=== PATIENT | female | born 1945 | race Caucasian/White ===

== ENCOUNTER 2018-06-07 13:47 | Inpatient (IN) ==
[2018-06-07] MEDS ORDERED: D5% in Water 1,000 ML IVC PRN (17:08)
[2018-06-07] MEDS ORDERED: *HR* Dextrose 50 % in Water (Syg) 50 ML SYRINGE IVP PRN (17:08)
[2018-06-07] MEDS ORDERED: Dextrose Gel 15 GM/37.5 ML TUBE PO PRN ×2 (17:08)
--- NOTE | 2018-06-07 17:25 | Internal Med History&Physical ---
Date of Encounter: 06/07/18 Time of Encounter: 17:00 Internal Medicine - H&P: HPI Chief complaint: Left knee pain Admitted From: Home Plans for Post Hospital Care: Transfer Intermediate Facility History of present illness: Patient is an 89-year-old female with past medical history significant for pacemaker, atrial fibrillation on Coumadin for anticoagulation, hypothyroid, hypertension and hyperlipidemia who presents to the [facility] ER on 06/07/18 due to left knee pain. Patient reports that after waking up this morning and going to the shower, she sat down and then when she stood up, she could not feel her legs bilaterally and fell hitting her left knee. Patient reported of immediate sharp left knee pain which she describes as sharp radiating down to her left ankle. Patient was not able to stand up so she pushed her life alert button and EMS was dispatched and brought patient into [facility] ER for further evaluation. At [facility], patient was found to have a left distal femoral meetaphysis fracture involving the interface with the femoral components of the prosthesis of left total knee arthroplasty. Orthopedics (Dr. Gutierrez) was consulted from [facility] and patient was transferred to [facility] for further medical management. Past Med Surg Social Fam HX - Past Medical History Medical history: atrial fibrillation, diabetes, hyperlipidemia, hypertension, thyroid disease - Past Surgical History Surgical History: pacemaker/AICD - Social History Smoking Status: Never smoker Alcohol use: none Current living situation: Home - Independent - Family History Father Hx Family Cardiac Disorders: Yes (NM) Internal Medicine - H&P: Meds ARIPiprazole [Abilify] 5 mg PO DAILY 06/07/18 [History] Buspirone HCl [Buspar] 30 mg PO BID 06/07/18 [History] Dorzolamide [Trusopt] 1 drop BOTH EYES BID 06/07/18 [History] Famotidine [Heartburn Prevention] 20 mg PO BID 06/07/18 [History] Glimepiride [Amaryl] 2 mg PO DAILY 06/07/18 [History] Levothyroxine [Synthroid] 175 mcg PO DAILY 06/07/18 [History] Montelukast [Singulair] 10 mg PO DAILY 06/07/18 [History] Omeprazole [PriLOSEC] 40 mg PO DAILY 06/07/18 [History] Pravastatin Sodium [Pravachol] 20 mg PO DAILY 06/07/18 [History] 3 Allergy/AdvReac Type Severity Reaction Status Date / Time ciprofloxacin Allergy Palpitation Verified 06/07/18 17:00 s codeine Allergy Difficulty Verified 06/07/18 17:00 Swallowing levofloxacin [From Levaquin] Allergy Hives Verified 06/07/18 17:00 Sulfa (Sulfonamide Allergy Weakness Verified 06/07/18 17:00 Antibiotics) nitrofurantoin AdvReac Nausea Verified 06/07/18 17:00 [From Macrobid] All Systems PM: A 10-system review of systems was performed and is negative for pertinent findings except as documented above in the HPI. - Constitutional Vitals: Temp Pulse Resp BP Pulse Ox 98.2 F 81 16 114/65 94 06/07/18 16:16 06/07/18 16:16 06/07/18 16:16 06/07/18 16:16 06/07/18 16:16 General appearance: Present: A&O X 3, no acute distress - Eye Eye exam: Present: normal appearance - ENT ENT exam: Present: mucous membranes moist - Respiratory Respiratory exam: Present: CTAB. Absent: accessory muscle use, rales, rhonchi, wheezes - Cardiovascular Cardiovascular exam: Present: RRR, +S1, +S2. Absent: diastolic murmur, gallop, rubs, systolic murmur - GI/Abdominal GI/Abdominal exam: Present: normal bowel sounds, soft, no peritoneal signs. Absent: distended, tenderness - Extremities Exam Extremities exam: Absent: pedal edema - Neurological Exam Neurological exam: Present: oriented X3 - Psychiatric Psychiatric exam: Present: normal mood - Skin Skin exam: Present: normal color - Assessment and plan (1) Left femoral shaft fracture Current Visit: Yes Status: Acute Assessment and plan: Orthopedics notified with scheduled distal femur replacement on 06/08/18 Patient with history of pacemaker placement and atrial fibrillation in addition to strong family history of cardiac disease. Consult cardiology for clearance. Qualifiers: Qualified Code(s): S72.302A - Unspecified fracture of shaft of left femur, initial encounter for closed fracture (2) Atrial fibrillation Current Visit: Yes Status: Acute Assessment and plan: Patient reports a history of atrial fibrillation and as a result pacemaker placement Patient currently on Coumadin for anticoagulation. Qualifiers: Atrial fibrillation type: unspecified Qualified Code(s): I48.91 - Unspecified atrial fibrillation (3) HTN (hypertension) Current Visit: Yes Status: Acute Assessment and plan: Continue home medications Qualifiers: Hypertension type: essential hypertension Qualified Code(s): I10 - Essential (primary) hypertension (4) HLD (hyperlipidemia) Current Visit: Yes Status: Acute Assessment and plan: Continue home medications Qualifiers: Hyperlipidemia type: unspecified Qualified Code(s): E78.5 - Hyperlipidemia , unspecified (5) Hypothyroid Current Visit: Yes Status: Acute Assessment and plan: Continue home medications Qualifiers: Hypothyroidism type: unspecified Qualified Code(s): E03.9 - Hypothyroidism , unspecified (6) Diabetes Current Visit: Yes Status: Acute Assessment and plan: Coverage with sliding-scale insulin Qualifiers: Chronic kidney disease stage: unspecified stage Qualified Code(s): E08.22 - Diabetes mellitus due to underlying condition with diabetic chronic kidney disease; Z79.4 - skilled nursing (current) use of insulin (7) DVT prophylaxis Current Visit: Yes Status: Acute Assessment and plan: Will hold patient's Coumadin due to potential surgery on 06/08/18 - Time Spent With Patient Total time spent is greater than 50% in coordination of care (as documented) at patient's floor/unit and/or counseling patient:
--- NOTE | 2018-06-07 17:38 | Orthopedic Consult Note ---
Date of Encounter: 06/11/18 Time of Encounter: 17:36 Assessment and Plan (1) Left femoral shaft fracture Status: Acute Qualifiers: Encounter type: initial encounter Qualified Code(s): S72.302A - Unspecified fracture of shaft of left femur, initial encounter for closed fracture History of Present Illness Chief complaint: Left Distal Femur Replacement HPI: Ms. Leach is a 72 year old female At [facility], patient was found to have a left distal femoral metaphysis fracture involving the interface with the femoral components of the prosthesis of left total knee arthroplasty. Surgery tomorrow 06/08 with Patient consent was discussed and reviewed - patient signed. All questions and concerns were addressed. Medical clearance needed. Past Med Surg Social Fam HX - Past Medical History Medical history: atrial fibrillation, diabetes, hyperlipidemia, hypertension, thyroid disease - Past Surgical History Surgical History: pacemaker/AICD - Social History Smoking Status: Never smoker Alcohol use: none - Family History Father Hx Family Cardiac Disorders: Yes (ID) Medications and Allergies ARIPiprazole [Abilify] 5 mg PO DAILY 06/07/18 [History] Buspirone HCl [Buspar] 30 mg PO BID 06/07/18 [History] Dorzolamide [Trusopt] 1 drop BOTH EYES BID 06/07/18 [History] Famotidine [Heartburn Prevention] 20 mg PO BID 06/07/18 [History] Glimepiride [Amaryl] 2 mg PO DAILY 06/07/18 [History] Levothyroxine [Synthroid] 175 mcg PO DAILY 06/07/18 [History] Montelukast [Singulair] 10 mg PO DAILY 06/07/18 [History] Omeprazole [PriLOSEC] 40 mg PO DAILY 06/07/18 [History] Pravastatin Sodium [Pravachol] 20 mg PO DAILY 06/07/18 [History] Warfarin [Coumadin] 2 mg PO SUSA 06/08/18 [History] Warfarin [Coumadin] 4 mg PO MOTUWETHFR 06/08/18 [History] 3 Allergy/AdvReac Type Severity Reaction Status Date / Time ciprofloxacin Allergy Palpitation Verified 06/07/18 17:00 s codeine Allergy Difficulty Verified 06/07/18 17:00 Swallowing levofloxacin [From Levaquin] Allergy Hives Verified 06/07/18 17:00 Sulfa (Sulfonamide Allergy Weakness Verified 06/07/18 17:00 Antibiotics) nitrofurantoin AdvReac Nausea Verified 06/07/18 17:00 [From Macrobid] All Systems Reviewed: The remainder of the systems were reviewed and are negative - Constitutional Constitutional: as per HPI - Cardiovascular Cardiovascular: as per HPI - Respiratory Respiratory: as per HPI - Musculoskeletal Musculoskeletal: abnormal gait, joint swelling, limited range of motion, radiating pain into limb, no numbness Physical Exam - Constitutional Vitals: Temp Pulse Resp BP Pulse Ox 98.2 F 81 16 114/65 94 06/07/18 16:16 06/07/18 16:16 06/07/18 16:16 06/07/18 16:16 06/07/18 16:16 General appearance IM: A&O X 3, morbidly obese, answers questions appropriately Results - Labs Result Diagrams: 06/10/18 04:35 06/10/18 04:35 Labs: All other labs normal. - Diagnostic results Knee x-ray: report reviewed, image reviewed Consult Discharge Plan - Plan Referrals: Ernesto Kearney DO [Primary Care Provider] -
[2018-06-07] MEDS ORDERED: Naloxone 0.4 MG/ML INJ IVP PRN (17:48)
[2018-06-07] MEDS: Ketorolac 30 MG/ML VIAL IVP PRN ×2 (18:48→23:43)
[2018-06-07] MEDS: Insulin LISPRO 300 UNITS/3 ML VIAL SQ SCH ×2 (18:50→20:55)
[2018-06-07 18:56] LABS: Basophils % 0.5 %; Eosinophils % 0.2 %; Hematocrit 38.7 % (35.3-44.9); Hemoglobin 12.1 g/dL (11.5-15.4); Immature Granulocytes % 0.6 % (0-4); Lymphocytes # 1.2 K/mcL (0.6-4.6); Lymphocytes % 14.2 %; Mean Corpuscular HGB Conc 31.3 g/dL (31.6-35.5); Mean Corpuscular Hemoglobin 27.3 pg (28.0-33.3); Mean Corpuscular Volume 87.2 fL (83.0-100.0); Mean Platelet Volume 11.1 fL (9.4-12.4); Monocytes # 0.6 K/mcL (0.0-1.3); Monocytes % 7.1 %; Neutrophils # 6.8 K/mcL (1.6-8.9); Platelet Count 224 K/mcL (140-400); Red Blood Count 4.44 M/mcL (3.82-4.97); Red Cell Distribution Width 16.5 % (11.5-14.5); Segmented Neutrophils % 77.4 %
[2018-06-07 19:04] LABS: INR 3.3; Prothrombin Time 37.4 Seconds (9.4-12.1)
[2018-06-07 19:15] LABS: BUN/Creatinine Ratio 19 (6-26); Blood Urea Nitrogen 10 mg/dL (8-23); Calcium 8.6 mg/dL (8.6-10.3); Carbon Dioxide 30 mEq/L (23-29); Chloride 102 mEq/L (98-107); Glucose 112 mg/dL (70-105); Osmolality,Calculated 286 (280-300); Sodium 138 mEq/L (136-145); eGFR For Non-African Americans > 60 (> 60)
--- NOTE | 2018-06-07 19:18 | Anesthesia Evaluation PreOp ---
Date of Encounter: 06/07/18 Time of Encounter: 19:12 - Past History Planned Operation: Right Distal femoral Replacement Cardiac History: HTN, Hyperlipidemia, Arrhythmia (Afib), Pacemaker/ICD ( Pacemaker) Pulmonary History: Denies Any Significant HX HVAC SPECIALIST History: Denies Any Significant HX Other Medical History: Diabetes Type II, Thyroid (Hypo), Other ([facility] [place] BMI-59.6) Anesthesia History: Past Anesthesia (RIGO, Chema. TKR, bladder sx), Problems ( needed CPAP post prior surgery) : No Alcohol Use: none Drug use: none Medications and Allergies ARIPiprazole [Abilify] 5 mg PO DAILY 06/07/18 [History] Buspirone HCl [Buspar] 30 mg PO BID 06/07/18 [History] Dorzolamide [Trusopt] 1 drop BOTH EYES BID 06/07/18 [History] Famotidine [Heartburn Prevention] 20 mg PO BID 06/07/18 [History] Glimepiride [Amaryl] 2 mg PO DAILY 06/07/18 [History] Levothyroxine [Synthroid] 175 mcg PO DAILY 06/07/18 [History] Montelukast [Singulair] 10 mg PO DAILY 06/07/18 [History] Omeprazole [PriLOSEC] 40 mg PO DAILY 06/07/18 [History] Pravastatin Sodium [Pravachol] 20 mg PO DAILY 06/07/18 [History] 3 Allergy/AdvReac Type Severity Reaction Status Date / Time ciprofloxacin Allergy Palpitation Verified 06/07/18 17:00 s codeine Allergy Difficulty Verified 06/07/18 17:00 Swallowing levofloxacin [From Levaquin] Allergy Hives Verified 06/07/18 17:00 Sulfa (Sulfonamide Allergy Weakness Verified 06/07/18 17:00 Antibiotics) nitrofurantoin AdvReac Nausea Verified 06/07/18 17:00 [From Macrobid] - Meds/Allergy Pre-op Review Medications Reviewed: Yes Allergies Reviewed: Yes Beta Blockers on Current Med List: No Anesthesia Results - Labs 06/07/18 18:16 06/07/18 18:16 Anesthesia Exam Vital Signs/O2 Sat, Most Current Temp Pulse Resp BP Pulse Ox 98.2 F 81 16 114/65 94 06/07/18 16:16 06/07/18 16:16 06/07/18 16:16 06/07/18 16:16 06/07/18 16:16 NPO (# of Hours): > 8 hrs Pain Scale: 0 Pain Scale Used: Numeric (1 - 10) - HEENT Pupil (Motor): Pupils equal, EOMI Mallampati: III Teeth: Normal Oral Opening: Greater than 3 - HVAC SPECIALIST LOC: Oriented HVAC SPECIALIST Motor: Normal RUE, Normal LUE, Normal RLE, Normal LLE, Normal Face HVAC SPECIALIST Sensory: Normal: RUE, LUE, RLE, LLE, Face - Cardiac Rhythm: Regular Murmur: None JVD: No Carotid Bruit: No - Pulmonary Breath Sounds: bilateral Clear Respiratory Effort: Symmetrical Anesthesia Assess/Plan ASA Score: 4 Modified [place] Scale for Level of Consciousness: Cooperative, oriented, and tranquil Anesthetic Plan: General, Regional Autologous Blood: Yes Monitoring Plan: Standard Monitors Recovery Plan: PACU
[2018-06-07] MEDS: Dorzolamide OPTH 10 ML BOTTLE BOTH EYES SCH (20:54)
[2018-06-07] MEDS: Famotidine 20 MG TABLET PO SCH (20:55)
[2018-06-08 02:05] LABS: INR 3.4; Prothrombin Time 38.6 Seconds (9.4-12.1)
[2018-06-08 02:12] LABS: BUN/Creatinine Ratio 22 (6-26); Blood Urea Nitrogen 13 mg/dL (8-23); Calcium 8.2 mg/dL (8.6-10.3); Carbon Dioxide 29 mEq/L (23-29); Chloride 101 mEq/L (98-107); Glucose 106 mg/dL (70-105); Osmolality,Calculated 281 (280-300); Potassium 3.9 mEq/L (3.5-5.1); Sodium 135 mEq/L (136-145); eGFR For Non-African Americans > 60 (> 60)
--- NOTE | 2018-06-08 06:50 | Orthopedics Progress Note ---
Date of Encounter: 06/08/18 Time of Encounter: 06:49 Subjective Interval history: Patient seen this morning as well as yesterday displaced distal periprosthetic femur fracture left x-ray indicates not enough bone for fixation, nonoperative management equals non-ambulation, recommendation is revision to a hinge total knee distal femoral replacement. We reviewed the risks and benefits as well as recovery. All questions were answered. The patient agreed to this treatment plan and appeared to understand the plan is reviewed. Patient's INR is 3.4 we will order FFP surgery scheduled for today. Objective Vital signs: Vital Signs Temp Pulse Resp BP Pulse Ox 06/08/18 06:37 98.3 F 76 20 129/77 96 06/08/18 05:40 98.4 F 80 18 124/72 95 06/07/18 23:28 98.2 F 80 18 135/78 92 06/07/18 20:40 98.2 F 83 16 122/69 93 06/07/18 16:16 98.2 F 81 16 114/65 94 Intake and Output 06/07/18 06/07/18 06/08/18 15:59 23:59 07:59 Output Total 400 / 400 Balance -400 / -400 Output: Catheter 400 / 400 Other: Weight 147 kg Blood Glucose* 151 - Labs CBC & BMP: 06/07/18 18:16 06/08/18 01:16 Labs: Abnormal lab results MCH 27.3 pg (28.0-33.3) L 06/07/18 18:16 MCHC 31.3 g/dL (31.6-35.5) L 06/07/18 18:16 RDW 16.5 % (11.5-14.5) H 06/07/18 18:16 PT 38.6 Seconds (9.4-12.1) H 06/08/18 01:16 Sodium 135 mEq/L (136-145) L 06/08/18 01:16 Glucose 106 mg/dL (70-105) H 06/08/18 01:16 POC Glucose 151 mg/dL (70-99) H 06/07/18 20:46 Calcium 8.2 mg/dL (8.6-10.3) L 06/08/18 01:16 - VTE Documentation of Mechanical Device: Venous foot pump, device Consult Discharge Plan - Plan Referrals: Ernesto Kearney DO [Primary Care Provider] -
[2018-06-08] MEDS ORDERED: 0.9 % Sodium Chloride 250 ML IVC SCH (07:30)
[2018-06-08] MEDS: Insulin LISPRO 300 UNITS/3 ML VIAL SQ SCH (07:38)
--- NOTE | 2018-06-08 08:46 | Cardiology Consult Note ---
<Logan Hines - Last Filed: 06/08/18 10:10> Date of Encounter: 06/08/18 Time of Encounter: 08:45 Assessment and Plan (1) Left femoral shaft fracture Current Visit: Yes Status: Acute Per Cardiology: Management per orthopedics with apparent surgery planned today. Qualifiers: Encounter type: initial encounter Qualified Code(s): S72.302A - Unspecified fracture of shaft of left femur, initial encounter for closed fracture (2) Preop cardiovascular exam Current Visit: Yes Status: Acute Per Cardiology: No known history of CAD. Will attempt to obtain recent stress test and echo results from outside facility within the past one year. Chest pain-free. Of note, has pacemaker as well with apparent recent pacer check in the past few weeks as well by her primary oriental medicine practitioner -- has [employer] device. On statin. Pending surgery today. Anticipate patient can be considered low- intermediate risk for planned procedure from a cardiac standpoint. We will await medical records and review discussed with Dr. Rowland. (3) Atrial fibrillation Current Visit: Yes Status: Chronic Per Cardiology: History of paroxysmal atrial fibrillation. Has pacemaker. Follows with outside rheology in [facility]. On Coumadin, currently on hold for pending surgical intervention. Recommend resuming when able. Qualifiers: Atrial fibrillation type: paroxysmal Qualified Code(s): I48.0 - Paroxysmal atrial fibrillation Discussion w patient/family: The assessment and plan as outlined above was discussed with the patient who expressed understanding and agreement. All questions were answered. Thank you for involving us in the care of your patient. Please call with any questions. History of Present Illness Consult date: 06/08/18 Requesting physician: Elie Ayala Consult reason: Preop Chief complaint: Leg pain History of present illness: Ms. Leach is a 72 year old female with a relevant past medical history of paroxysmal atrial fibrillation on Coumadin, COPD, hyperlipidemia, hypertension, hypothyroidism, utilizes home oxygen at night, pacemaker. Cardiology consult for preoperative risk stratification. Patient denies any chest pain symptoms. She reports dyspnea on exertion unchanged and at baseline with history of COPD and utilizes home oxygen at night. She reports follows with cardiology at [facility] and underwent stress test , echocardiogram, and [employer] pacer check within the past one year. He denies any history of CAD or previous stenting. She reports yesterday and trouble getting off the toilet and reports has been having ongoing bilateral leg numbness. She reports legs gave out and she buckled and hurt her left leg. She denies any palpitations, dizziness, syncope. Denies any active bleeding or blood loss. Reports follows Coumadin with her primary oriental medicine practitioner. Past Med Surg Social Fam HX - Past Medical History Attestation: Yes The following information was validated with the patient. Source: patient, old records reviewed Medical history: atrial fibrillation, diabetes, hyperlipidemia, hypertension, thyroid disease - Past Surgical History Surgical History: pacemaker/AICD Additional surgical history: two bladder surgeries, Bilateral knee replacements , hysterectomy - Social History Smoking Status: Never smoker Smokeless Tobacco Status: No Alcohol use: none Drug use: none - Family History Father Hx Family Cardiac Disorders: Yes Medications and Allergies ARIPiprazole [Abilify] 5 mg PO DAILY 06/07/18 [History] Buspirone HCl [Buspar] 30 mg PO BID 06/07/18 [History] Dorzolamide [Trusopt] 1 drop BOTH EYES BID 06/07/18 [History] Famotidine [Heartburn Prevention] 20 mg PO BID 06/07/18 [History] Glimepiride [Amaryl] 2 mg PO DAILY 06/07/18 [History] Levothyroxine [Synthroid] 175 mcg PO DAILY 06/07/18 [History] Montelukast [Singulair] 10 mg PO DAILY 06/07/18 [History] Omeprazole [PriLOSEC] 40 mg PO DAILY 06/07/18 [History] Pravastatin Sodium [Pravachol] 20 mg PO DAILY 06/07/18 [History] 3 Allergy/AdvReac Type Severity Reaction Status Date / Time ciprofloxacin Allergy Palpitation Verified 06/07/18 17:00 s codeine Allergy Difficulty Verified 06/07/18 17:00 Swallowing levofloxacin [From Levaquin] Allergy Hives Verified 06/07/18 17:00 Sulfa (Sulfonamide Allergy Weakness Verified 06/07/18 17:00 Antibiotics) nitrofurantoin AdvReac Nausea Verified 06/07/18 17:00 [From Macrobid] All Systems Review: The remainder of the systems were reviewed and are negative - Cardiovascular Cardiovascular: as per HPI, dyspnea on exertion Physical Examination Vital Signs, Last 4 Hours Temp Pulse Resp BP Pulse Ox 06/08/18 06:37 98.3 F 76 20 129/77 96 06/08/18 05:40 98.4 F 80 18 124/72 95 General: Conversant, No Apparent Distress HEENT: Atraumatic, Normocephaly, Mucus Membranes Moist Neck: No JVD, Normal carotid pulses Cardiac: Reg Rate and Rhythm, Normal S1 and S2, No Murmur Lungs: Normal Breath Sounds, No Wheeze, Rales, Rhonchi Neuro: Alert and responsive, No focal deficits noted Abdomen: Soft, Non-Tender, Other (obese) Skin: No rashes noted on visualized skin Musculoskeletal: No Chest Wall Tenderness Extremities: No Clubbing, No Cyanosis, No Edema, Normal Pulses Results 06/07/18 18:16 06/08/18 01:16 Lab Results Laboratory Tests 06/07/18 06/08/18 06/08/18 18:16 01:16 01:16 Hgb 12.1 Hct 38.7 INR 3.4 Creatinine 0.60 Est GFR (Non-Af Amer) > 60 Active Medications Aripiprazole (Abilify) 5 mg PO DAILY [facility] Stop: 12/08/18 09:01 Buspirone HCl (Buspar) 30 mg PO BID [facility] Stop: 12/07/18 21:01 Last Admin: 06/07/18 20:55 Dose: Not Given Dextrose/Water (Dextrose 50% (Syg)) 25 ml IVP AD PRN PRN Reason: Hypoglycemia Stop: 12/07/18 17:09 Dorzolamide HCl (Trusopt) 1 drop BOTH EYES BID [facility] Stop: 12/07/18 21:01 Last Admin: 06/07/18 20:54 Dose: 1 drop Famotidine (Pepcid) 20 mg PO BID [facility] PRN Reason: Protocol Stop: 12/07/18 21:01 Last Admin: 06/07/18 20:55 Dose: 20 mg Glucagon (Glucagen) 1 mg IM ONCE PRN PRN Reason: Hypoglycemia Stop: 12/07/18 17:09 Glucose (Gluctose) 15 gm PO ONCE PRN PRN Reason: Hypoglycemia Stop: 12/07/18 17:09 Glucose (Gluctose) 30 gm PO ONCE PRN PRN Reason: Hypoglycemia Stop: 12/07/18 17:09 Dextrose (Dextrose 5%) 1,000 mls @ 100 mls/hr IVC .Q10H PRN PRN Reason: HYPOGLYCEMIA Stop: 12/07/18 17:09 Sodium Chloride (0.9 % Sodium Chloride) 250 mls @ 25 mls/hr IVC .Q10H [facility] Stop: 12/08/18 07:31 Insulin Human Lispro (Humalog) 0 units SQ TIDAC [facility] PRN Reason: Protocol Stop: 12/07/18 17:16 Last Admin: 06/08/18 07:38 Dose: Not Given Insulin Human Lispro (Humalog) 0 units SQ HS [facility] PRN Reason: Protocol Stop: 12/07/18 21:01 Last Admin: 06/07/18 20:55 Dose: Not Given Ketorolac Tromethamine (Toradol) 30 mg IVP Q4H PRN PRN Reason: Mild Pain Stop: 06/12/18 17:11 Last Admin: 06/07/18 23:43 Dose: 30 mg Levothyroxine Sodium (Synthroid) 175 mcg PO 0630 [facility] Stop: 12/08/18 06:31 Last Admin: 06/08/18 06:01 Dose: Not Given Montelukast Sodium (Singulair) 10 mg PO DAILY [facility] Stop: 12/08/18 09:01 Naloxone HCl (Narcan) 0.4 mg IVP Q2MIN PRN PRN Reason: SEE COMMENTS Stop: 12/07/18 17:49 Omeprazole (Prilosec) 40 mg PO DAILY [facility] Stop: 12/08/18 09:01 Simvastatin (Zocor) 10 mg PO HS [facility] Stop: 12/08/18 21:01 - Imaging and Cardiology Stress Test: other Echo: other - EKG Interpretation EKG results cardiology: other (pending) Consult Discharge Plan - Plan Referrals: Ernesto Kearney DO [Primary Care Provider] - <Espinoza Rowland - Last Filed: 06/08/18 15:02> Date of Encounter: 06/08/18 Time of Encounter: 14:00 - Attending Attestation I have personally performed a face to face evaluation on this patient. I have reviewed and agree with the care plan. History and Exam by me shows: CC: Pain in left leg HPI: Pt reports attempting to get up off the commode, legs were weak, fell with immediate pain in left leg, 9/10, painful with any movement, called squad, found to have left femoral shaft fracture in ER, now scheduled for surgical repair. We are asked to evaluate for cardiovascular risk stratification. Pt reports sees cardiology regularly, follows with [facility] for SSS and PPMK. She reports her heart rate was very slow, with dizziness when standing and attempting to walk, near syncope, underwent cardiac eval including stress imaging and echo, reportedly normal, found to have PAF with slow heart race response, had PPMK at that time. She has been following pacer with [facility]. She reports left leg pain 12/30, has improved but not resolved. ROS: reviewed PMH: reviewed PE: pt seen and examined, agree with findings as documented EKG: Electronic AV sequential pacemaker IMP/Plan: 1. Left femoral fracture, pt is at moderate cardiovascular risk for planned procedure 2. A fib with controlled ventricular response, on systemic anticoagulation with warfarin, on hold in anticipation of surgical intervention, resume post op when stable. 3. Hypothyoid, on replacement 4. Hypertension, controlled on current meds. Assessment and Plan Discussion w patient/family: The assessment and plan as outlined above was discussed with the patient and/or family members who expressed understanding and agreement. All questions were answered. Thank you for involving us in the care of your patient. Please call with any questions. History of Present Illness History of present illness: Ms. Leach is a 72 year old female All Systems Review: The remainder of the systems were reviewed and are negative Physical Examination Vital Signs, Last 4 Hours Temp Pulse BP Pulse Ox 06/08/18 14:09 98.6 F 80 118/76 97 06/08/18 13:53 98.0 F 80 118/73 96 06/08/18 13:42 98.0 F 80 118/73 96 06/08/18 12:06 97.9 F 80 118/75 97 06/08/18 11:50 98.7 F 80 120/65 97 Results 06/07/18 18:16 06/08/18 01:16 Lab Results 06/07/18 06/07/18 06/07/18 18:16 18:16 18:16 WBC 8.8 Hgb 12.1 Hct 38.7 Plt Count 224 INR 3.3 Sodium 138 Potassium 4.0 Chloride 102 Carbon Dioxide 30 H BUN 10 Creatinine 0.53 L Glucose 112 H Calcium 8.6 06/08/18 06/08/18 01:16 01:16 WBC Hgb Hct Plt Count INR 3.4 Sodium 135 L Potassium 3.9 Chloride 101 Carbon Dioxide 29 BUN 13 Creatinine 0.60 Glucose 106 H Calcium 8.2 L
[2018-06-08] MEDS ORDERED: ARIPiprazole 5 MG TABLET PO SCH (09:00)
[2018-06-08] MEDS: Ketorolac 30 MG/ML VIAL IVP PRN (10:09)
[2018-06-08] MEDS: Famotidine 20 MG TABLET PO SCH (10:21)
[2018-06-08] MEDS: Dorzolamide OPTH 10 ML BOTTLE BOTH EYES SCH (11:56)
[2018-06-08 16:20] LABS: INR 2.1; Prothrombin Time 23.3 Seconds (9.4-12.1)
[2018-06-08] MEDS ORDERED: *HR* FentaNYL (PF) 100 MCG/2 ML VIAL ONE ×2 (16:32→19:15)
[2018-06-08] MEDS ORDERED: *HR* Propofol 200 MG/20 ML VIAL IVP ONE (16:33)
[2018-06-08] MEDS ORDERED: *HR* Midazolam HCl 2 MG/2 ML VIAL ONE (16:33)
[2018-06-08] MEDS ORDERED: Dexamethasone 4 MG/ML VIAL ONE (16:34)
[2018-06-08] MEDS ORDERED: Ondansetron 4 MG/2 ML VIAL ONE (16:34)
[2018-06-08] MEDS ORDERED: Lidocaine -MPF 2% 2 ML VIAL ONE (16:34)
[2018-06-08] MEDS ORDERED: Ethanol\\Acetic Acid\\Na Ace\\Ben 1,000 ML IRRIG.SOLN IR ONE (16:38)
[2018-06-08] MEDS ORDERED: CeFAZolin Syr 3,000MG/30 ML 3,000 MG/30 ML SYRINGE IVPB ONE (17:26)
[2018-06-08] MEDS ORDERED: Acetaminophen IV 1,000 MG/100 ML INFUS..BTL ONE (18:04)
[2018-06-08] MEDS ORDERED: *HR* Magnesium Sulfate 1 GM/2 ML VIAL ONE (18:10)
[2018-06-08] MEDS ORDERED: Dexamethasone 4 MG/ML VIAL IVP ONE (18:15)
[2018-06-08] MEDS ORDERED: *HR* Labetalol 100 MG/20 ML MDV IVP PRN (18:15)
[2018-06-08] MEDS ORDERED: Ondansetron 4 MG/2 ML VIAL IVP ONE (18:15)
[2018-06-08] MEDS ORDERED: *HR* HYDROmorphone (PF) 1 MG/ML SYRINGE IVP PRN (18:15)
--- NOTE | 2018-06-08 18:40 | Internal Med Progress Note ---
Hospitalist Progress Note - Encounter Date of Encounter: 06/08/18 Time of Encounter: 11:00 - Subjective Interval History: Patient awaiting surgery this afternoon Cardiology consulted for clearance - Exam Vitals: Temp Pulse Resp BP Pulse Ox 97.7 F 80 17 141/73 95 06/08/18 15:35 06/08/18 17:20 06/08/18 17:20 06/08/18 17:20 06/08/18 17:20 Exam: Gen.: Nonacute distress, alert and oriented 3 ENT: Mucosal membranes moist Respiratory: Lungs are clear to auscultation bilaterally without any wheezing rhonchi or rales Cardiovascular: Normal S1 and S2 regular rate rhythm no murmurs rubs or gallops Abdomen: Soft, nontender and nondistended with positive bowel sounds Extremities: No lower extremity edema Skin: Normal color - Assessment and Plan (1) Left femoral shaft fracture Current Visit: Yes Status: Acute Assessment and Plan: Orthopedics notified with scheduled distal femur replacement this afternoon. Patient with history of pacemaker placement and atrial fibrillation in addition to strong family history of cardiac disease. Cardiology consult for surgical clearance (2) Atrial fibrillation Current Visit: Yes Status: Chronic Assessment and Plan: Patient reports a history of atrial fibrillation and as a result pacemaker placement Patient currently on Coumadin for anticoagulation. (3) HTN (hypertension) Current Visit: Yes Status: Acute Assessment and Plan: Continue home medications (4) HLD (hyperlipidemia) Current Visit: Yes Status: Acute Assessment and Plan: Continue home medications (5) Hypothyroid Current Visit: Yes Status: Acute Assessment and Plan: Continue home medications (6) Diabetes Current Visit: Yes Status: Acute Assessment and Plan: Coverage with sliding-scale insulin (7) DVT prophylaxis Current Visit: Yes Status: Acute Assessment and Plan: Will hold patient's Coumadin due to potential surgery on 06/08/18 - Time Spent with Patient Total time spent is greater than 50% in coordination of care (as documented) at patient's floor/unit and/or counseling patient: Internal Medicine: Result - Labs CBC & Chem 7: 06/07/18 18:16 06/08/18 01:16 Labs: Short CBC 06/07/18 Range/Units 18:16 WBC 8.8 (4.3-11.1) K/mcL Hgb 12.1 (11.5-15.4) g/dL Hct 38.7 (35.3-44.9) % Plt Count 224 (140-400) K/mcL Neutrophils # 6.8 (1.6-8.9) K/mcL BMP 06/07/18 06/08/18 18:16 01:16 Sodium 138 135 L Potassium 4.0 3.9 Chloride 102 101 Carbon Dioxide 30 H 29 BUN 10 13 Creatinine 0.53 L 0.60 Glucose 112 H 106 H Calcium 8.6 8.2 L - ABG Interpretation ABG results: PT/INR, D-dimer PT 23.3 Seconds (9.4-12.1) H 06/08/18 16:02 - VTE Documentation of Mechanical Device: Venous foot pump, device Consult Discharge Plan - Plan Referrals: Ernesto Kearney DO [Primary Care Provider] - (1) Left femoral shaft fracture Qualifiers: Encounter type: initial encounter Qualified Code(s): S72.302A - Unspecified fracture of shaft of left femur, initial encounter for closed fracture (2) Atrial fibrillation Qualifiers: Atrial fibrillation type: paroxysmal Qualified Code(s): I48.0 - Paroxysmal atrial fibrillation (3) HTN (hypertension) Qualifiers: Hypertension type: essential hypertension Qualified Code(s): I10 - Essential (primary) hypertension (4) HLD (hyperlipidemia) Qualifiers: Hyperlipidemia type: unspecified Qualified Code(s): E78.5 - Hyperlipidemia, unspecified (5) Hypothyroid Qualifiers: Hypothyroidism type: unspecified Qualified Code(s): E03.9 - Hypothyroidism, unspecified (6) Diabetes Qualifiers: Chronic kidney disease stage: unspecified stage Qualified Code(s): E08.22 - Diabetes mellitus due to underlying condition with diabetic chronic kidney disease; Z79.4 - long term care phlebotomist (current) use of insulin
--- NOTE | 2018-06-08 19:15 | Orthopedic Operative Note ---
Date of procedure: 06/08/18 Pre-op diagnosis: Displaced periprosthetic distal femur fracture, patella fracture Post-op diagnosis: same Procedure: Procedure: Revision total knee replacement to distal femoral replacement, partial patellectomy Estimated blood loss: 1000 mL Hardware: Biomet distal femoral replacement 7 cm femur 18.5 x 150 stem, 75 mm long nonmodular tibia 14 Ni Auxillary components tibial bushing axle femoral bushings lock pin Dictation of procedure: Patient brought to the operating placed on the operating table after general anesthesia was administered the left lower extremity was prepped and draped in the sterile surgical fashion the patient received IV antibiotics prior to incision. A longitudinal incision was made incorporating the old incision centered over the patella. The incision was made through the skin and subcutaneous tissue hemostasis was obtained with Bovie cautery. Using careful sharp dissection the extensor mechanism was identified. The patient had ruptured through the extensor mechanism with the proximal fracture fragment. A medial parapatellar approach was performed. The Ni was removed. Patient had extensive comminution with multiple large fragments. The distal femoral component with the attached bone was carefully dissected free from its soft tissue structures and removed. The tibial component was removed removing the baseplate screws followed by utilizing an osteotome and oscillating saw and then malleted out. The tibial component was removed without significant bone loss. The tibia was prepared first was reamed. The tibia was sized to 75. This was a monoblock construct had good fit and fixation. Attention was then turned to the femur. The distal femur was transected to get a fresh bony cut. A cut that was even as well. The femur was reamed up to a size 19 x 150 mm. A 18 trial stem was impacted in place with the 7 cm femur and the 14 trial Ni elected. Full flexion full extension no instability, good patella tracking. Examination of the patella revealed a fracture of the superior lateral aspect, this was excised the patella was press fit and had good fit and fixation. All trial components were removed. The knee sat for 2 minutes with a antibacterial solution while components were assembled on the back table. The monoblock tibia cemented first and impacted in place. The femoral component once assembled was impacted in place in the appropriate orientation. This had poor fixation rotationally. This was then cemented in place and had good fixation. The tibial bushing the femoral bushings were locked in place the axle was used to articulate the tibial and femoral components and this was secured with the locking pin. Knee was taken through a range of motion and excellent patella tracking. The wound was irrigated with pulse irrigation. The extensor mechanism was closed with a running # 2 PDS suture. The deep tissue was irrigated and closed with #2 PDS suture superficially with 0 PDS suture skin was closed with skin benjamín. Patient placed in a sterile dressing postoperative brace extubated transferred to recovery room in stable condition. Anesthesia: GETA Surgeon: Jatinder Gutierrez Was there an podiatric assistant present: No Estimated blood loss (cc): 1,000 Condition: stable Disposition: PACU
[2018-06-08] MEDS ORDERED: Albuterol 2.5 MG/3 ML NEBULIZER ONE (19:34)
[2018-06-08 20:37] LABS: Hemoglobin 10.4 g/dL (11.5-15.4)
[2018-06-08 20:41] LABS: INR 1.7; Prothrombin Time 18.7 Seconds (9.4-12.1)
--- NOTE | 2018-06-08 20:57 | Anesthesia Evaluation Post Op ---
Date of Encounter: 06/08/18 Time of Encounter: 20:54 - Vital Signs Vital Signs: Vital Signs/O2 Sat, Most Current Temp Pulse Resp BP Pulse Ox 97.8 F 80 20 155/77 96 06/08/18 20:31 06/08/18 20:31 06/08/18 20:31 06/08/18 20:21 06/08/18 20:31 - Lungs Lungs: Rhonchi - Airway Airway: Non-obstructed - Cardiovascular Regular Rate - Mental Status Mental Status: Non-responsive (Patient not moving right sidewith right facial droop, Neurology cosulted, stroke protocol initiated and CAT Scan of head ordered. Patient being transported to radiology for brain CT then to emergency room for further evaluation and treatment.) - Pain Pain Scale: 0 - Nausea Vomiting Nausea Vomiting: Not Present - Hydration Hydration: NPO - Discharge PostOp Status: Transfer Patient to floor (Patient transported to CT and then to ER)
[2018-06-08 21:09] LABS: Basophils # 0.1 K/mcL (0.0-0.2); Basophils % 0.4 %; Eosinophils # 0.1 K/mcL (0.0-0.6); Eosinophils % 0.3 %; Immature Granulocytes % 0.9 % (0-4); Lymphocytes # 1.6 K/mcL (0.6-4.6); Lymphocytes % 9.4 %; Mean Corpuscular HGB Conc 31.4 g/dL (31.6-35.5); Mean Corpuscular Hemoglobin 27.9 pg (28.0-33.3); Mean Platelet Volume 11.4 fL (9.4-12.4); Monocytes # 0.5 K/mcL (0.0-1.3); Monocytes % 2.7 %; Neutrophils # 14.3 K/mcL (1.6-8.9); Platelet Count 207 K/mcL (140-400); Red Cell Distribution Width 16.7 % (11.5-14.5); Segmented Neutrophils % 86.3 %
[2018-06-08 21:12] LABS: Activated Partial Thrombo Time 40.5 Seconds (26.0-36.0)
[2018-06-08 21:25] LABS: BUN/Creatinine Ratio 17 (6-26); Blood Urea Nitrogen 11 mg/dL (8-23); Calcium 8.5 mg/dL (8.6-10.3); Carbon Dioxide 26 mEq/L (23-29); Chloride 100 mEq/L (98-107); Glucose 137 mg/dL (70-105); Osmolality,Calculated 284 (280-300); Potassium 4.3 mEq/L (3.5-5.1); Sodium 136 mEq/L (136-145); eGFR For Non-African Americans > 60 (> 60)
[2018-06-08 21:26] LABS: Troponin I < 0.03 ng/mL (< 0.04)
[2018-06-08] MEDS ORDERED: Isovue-370 500 ML INFUS..BTL IV ONE (21:40)
[2018-06-08 22:10] LABS: Basophils % 0.2 %; Eosinophils % 0.1 %; Hematocrit 31.1 % (35.3-44.9); Hemoglobin 9.5 g/dL (11.5-15.4); Immature Granulocytes % 0.8 % (0-4); Lymphocytes # 0.5 K/mcL (0.6-4.6); Lymphocytes % 3.8 %; Mean Corpuscular HGB Conc 30.5 g/dL (31.6-35.5); Mean Corpuscular Hemoglobin 27.1 pg (28.0-33.3); Mean Corpuscular Volume 88.6 fL (83.0-100.0); Mean Platelet Volume 10.9 fL (9.4-12.4); Monocytes # 0.2 K/mcL (0.0-1.3); Monocytes % 1.6 %; Neutrophils # 13.1 K/mcL (1.6-8.9); Platelet Count 193 K/mcL (140-400); Red Blood Count 3.51 M/mcL (3.82-4.97); Red Cell Distribution Width 16.6 % (11.5-14.5); Segmented Neutrophils % 93.5 %
[2018-06-08 22:11] LABS: Estimated Average Glucose 126 mg/dl; INR 1.7; Prothrombin Time 19.6 Seconds (9.4-12.1)
[2018-06-08 22:13] LABS: Activated Partial Thrombo Time 38.3 Seconds (26.0-36.0)
[2018-06-08 22:24] LABS: Alanine Aminotransferase 11 Units/L (7-52); Albumin 3.6 g/dL (3.5-5.7); Albumin/Globulin Ratio 1.3 (1.1-2.2); Alkaline Phosphatase 85 Units/L (34-104); Aspartate Amino Transferase 20 Units/L (13-39); BUN/Creatinine Ratio 17 (6-26); Bilirubin,Direct 0.2 mg/dL (0.0-0.2); Bilirubin,Indirect 0.9 mg/dL (0.0-1.2); Bilirubin,Total 1.1 mg/dL (0.3-1.0); Blood Urea Nitrogen 11 mg/dL (8-23); Calcium 8.2 mg/dL (8.6-10.3); Carbon Dioxide 29 mEq/L (23-29); Chloride 103 mEq/L (98-107); Globulin 2.7 g/dL (2.4-3.5); Glucose 171 mg/dL (70-105); Osmolality,Calculated 283 (280-300); Potassium 4.3 mEq/L (3.5-5.1); Sodium 135 mEq/L (136-145); Total Protein 6.3 g/dL (6.4-8.9); eGFR For Non-African Americans > 60 (> 60)
[2018-06-08 22:25] LABS: Chol/HDL Ratio 3.4 (0-4.9)
[2018-06-08 22:38] LABS: Thyroid Stimulating Hormone 2.68 mcIU/mL (0.340-5.600)
[2018-06-08] MEDS ORDERED: OXYCODONE Oral CONC 10 MG/0.5 ML ORAL.SYG SL PRN ×2 (22:50)
--- NOTE | 2018-06-08 23:06 | Event Note ---
<Henry Rondon - Last Filed: 06/09/18 00:19> Date of Encounter: 06/09/18 Time of Encounter: 23:04 Hospitalist team was called to the ED for Stroke alert for patient from PACU who had undergone knee arthroplasy and was reportedly sluggish to regain consciousness. After initial concern for slow responsiveness, the patient was reported to have right sided facial droop and some weakness. A stroke alert was called and the patient was taken for state head CT which showed possible acute infarct in the left basal ganglia and internal capsule. Dr. Easton contacted [facility] neurology who recommended no TPA be given due to the patient's blood loss during surgery. A CTA of the head and neck were recommended which did not demonstrate acute blockage. The patient was discussed with [facility] and was transferred to the ICU for close monitoring. We will give her ASA + Statin. <Ryan Easton - Last Filed: 06/09/18 01:04> Date of Encounter: 06/09/18 Stroke alert was called on this patient at approx 2110hrs. from PACU. The patient was taken directly to CT scan and then to the ER. On my arrival, it is noted that the patient had recently undergone right knee orthopedic surgery. She has a history of atrial fibrillation on warfarin, hypertension, hyperlipidemia and prior TIAs. Her last known normal state was at 1730 pre-op. On my assessment she had a right hemiplegia and was not responsive although she was protecting her airway saturating in the high 90s on NIPPV. As indicated by her PACU nurse, she never fully regained an adequate mental status after her surgery. I received report that on CT there was an acute ischemic infarct affecting the right basal ganglia and internal capsule. I spoke with Dr. Liat Blank at [facility] neurology. Given the timeline, TPA was not recommended. We proceeded to get a CT angio which did not show any occlusions that would warrant intra-vascular therapy and transfer to [facility]. She was transferred to ICU in a hemodynamically stable condition. Her daughter remained at bedside and we discussed the occurrence of this likely cardioembolic stroke secondary to atrial fibrillation. The patient has profuse bleeding from her surgical drain. INR is 1.7 after FFP administration perioperatively. At this time she will not be a candidate for anticoagulation for her atrial fibrillation given the recent stroke, surgery and active bleeding. We will administer high dose ASA per rectum pending establishment of NG access through which she can receive statin and her other medications. Her MAP is consistently above 65mmHg. Glucose >150mg/dl. Close monitoring of her neurologic status, aspiration precautions. If she is no longer able to protect her airway she will require intubation. The patient remains full code as per discussion with her daughter who is POA and healthcare proxy.
[2018-06-08] MEDS ORDERED: *HR* Warfarin 4 MG TABLET PO SCH (23:30)
[2018-06-09] MEDS ORDERED: Ketorolac 30 MG/ML VIAL IVP PRN (00:05)
[2018-06-09] MEDS ORDERED: *HR* Dextrose 50 % in Water (Syg) 50 ML SYRINGE IVP PRN (00:05)
[2018-06-09] MEDS ORDERED: Temazepam 15 MG CAPSULE PO PRN (00:05)
[2018-06-09] MEDS ORDERED: Dextrose Gel 15 GM/37.5 ML TUBE PO PRN ×2 (00:05)
[2018-06-09] MEDS ORDERED: OXYCODONE Oral CONC 10 MG/0.5 ML ORAL.SYG SL PRN ×2 (00:05)
[2018-06-09] MEDS ORDERED: MOM Conc 10 ML UD.LIQ PO PRN (00:05)
[2018-06-09] MEDS ORDERED: Ondansetron 4 MG/2 ML VIAL IVP PRN (00:05)
[2018-06-09] MEDS ORDERED: *HR* Warfarin 5 MG TABLET PO SCH (00:05)
[2018-06-09] MEDS ORDERED: D5% in Water 1,000 ML IVC PRN (00:05)
[2018-06-09] MEDS ORDERED: Naloxone 0.4 MG/ML INJ IVP PRN (00:05)
[2018-06-09] MEDS ORDERED: Sennosides 8.6 MG TABLET PO PRN (00:05)
[2018-06-09] MEDS: ceFAZolin 3,000 MG in 0.9 % Sodium Chloride 100 ML IVPB SCH ×2 (01:47→08:07)
[2018-06-09 06:27] LABS: Basophils % 0.1 %; Hematocrit 28.2 % (35.3-44.9); Immature Granulocytes % 0.5 % (0-4); Lymphocytes # 0.6 K/mcL (0.6-4.6); Lymphocytes % 4.2 %; Mean Corpuscular HGB Conc 31.9 g/dL (31.6-35.5); Mean Corpuscular Volume 87.9 fL (83.0-100.0); Monocytes # 0.5 K/mcL (0.0-1.3); Neutrophils # 12.2 K/mcL (1.6-8.9); Platelet Count 178 K/mcL (140-400); Red Blood Count 3.21 M/mcL (3.82-4.97); Segmented Neutrophils % 91.2 %
[2018-06-09 06:47] LABS: BUN/Creatinine Ratio 20 (6-26); Blood Urea Nitrogen 11 mg/dL (8-23); Calcium 7.9 mg/dL (8.6-10.3); Carbon Dioxide 31 mEq/L (23-29); Chloride 101 mEq/L (98-107); Glucose 192 mg/dL (70-105); Osmolality,Calculated 291 (280-300); Potassium 4.1 mEq/L (3.5-5.1); Sodium 138 mEq/L (136-145); eGFR For Non-African Americans > 60 (> 60)
[2018-06-09] MEDS: Famotidine 20 MG TABLET PO SCH ×3 (08:06→20:47)
[2018-06-09] MEDS: ARIPiprazole 5 MG TABLET PO SCH (08:07)
[2018-06-09] MEDS: Insulin LISPRO 300 UNITS/3 ML VIAL SQ SCH ×4 (08:09→17:34)
[2018-06-09] MEDS: Dorzolamide OPTH 10 ML BOTTLE BOTH EYES SCH ×2 (08:09→20:49)
[2018-06-09] MEDS: 0.9 % Sodium Chloride 250 ML IVC SCH ×3 (08:29→20:42)
[2018-06-09] MEDS ORDERED: Aspirin Enteric Coated 325 MG Tablet PO SCH (09:00)
[2018-06-09] MEDS: Lacri-Lube 3.5 GM TUBE BOTH EYES SCH ×2 (11:51→21:18)
--- NOTE | 2018-06-09 14:28 | Orthopedics Progress Note ---
Date of Encounter: 06/09/18 Time of Encounter: 07:30 Subjective Interval history: Patient was seen this AM in the ICU, she was arousable, but not responsive. She was extubated and stable with an NG tube. All CT scans were reported as negative for brain bleed. Nursing reports no movement of right arm. Left Lower Extremity In Brace Dressing C/D/I Drain active x-rays - well aligned well fixed distal femoral replacement. at femoral stem tip, anterior cement extravasation, not near any neurovascular structures. Discussed situation as I know it with patients daughter, informed her ICU medical doctors would be able to add more. But did tell her the situation as of right now is not good and very concerning. Objective Vital signs: Vital Signs Temp Pulse Resp BP Pulse Ox 06/09/18 13:00 80 21 133/77 97 06/09/18 12:18 100.0 F H 06/09/18 12:00 80 13 133/68 98 06/09/18 11:00 80 21 124/71 97 06/09/18 10:00 80 18 123/69 98 06/09/18 09:00 80 15 146/78 100 06/09/18 08:00 80 27 135/69 100 06/09/18 07:47 99.8 F H 06/09/18 07:00 80 23 107/87 06/09/18 06:00 80 17 121/67 100 06/09/18 05:00 80 76 107/68 100 06/09/18 04:00 98.5 F 80 20 119/67 100 06/09/18 03:00 98.7 F 80 20 158/92 100 06/09/18 02:00 98.7 F 79 99 127/86 100 06/09/18 01:00 98.8 F 80 22 156/76 96 06/09/18 00:05 98.8 F 80 20 126/79 99 06/08/18 22:47 97.8 F 80 22 135/67 98 06/08/18 22:28 80 19 115/87 95 06/08/18 21:58 80 16 153/121 94 06/08/18 21:49 80 95 135/70 21 06/08/18 21:36 80 18 121/65 93 06/08/18 21:27 80 22 91/80 100 06/08/18 21:16 80 26 145/106 100 06/08/18 21:11 21 157/78 92 06/08/18 20:51 97.8 F 80 20 154/72 96 06/08/18 20:41 80 20 151/78 96 06/08/18 20:31 97.8 F 80 20 157/78 96 06/08/18 20:21 80 20 155/77 96 06/08/18 20:11 80 20 151/71 96 06/08/18 20:01 97.5 F L 80 20 159/66 98 06/08/18 19:51 80 20 165/91 99 06/08/18 19:41 80 20 152/74 99 06/08/18 19:31 98.6 F 80 20 139/96 96 06/08/18 17:20 80 17 141/73 95 06/08/18 17:08 80 16 147/54 96 06/08/18 15:35 97.7 F 80 114/68 96 06/08/18 15:09 97.9 F 87 16 135/75 93 Intake and Output 06/08/18 06/09/18 06/09/18 23:59 07:59 15:59 Intake Total 100 / 100 Output Total 1250 / 1250 1170 / 1170 270 / 270 Balance -1250 / -1250 -1070 / -1070 -270 / -270 Intake: IV Fluids 100 / 100 Ancef 3,000 MG In 0.9 % Sodium 100 / 100 Chloride 100 ML @ 200 mls/hr IVPB Q8HR [facility] Rx#:[id number] Output: Urine 0 / 0 Estimated Blood Loss 1000 / 1000 Catheter 850 / 850 200 / 200 Gastric Drainage 0 / 0 Wound Drainage 250 / 250 320 / 320 70 / 70 Left Thigh 250 / 250 320 / 320 70 / 70 Other: Weight 150 kg Blood Glucose* 125 Patient Weight 06/09/18 23:59 Weight 150 kg - Labs CBC & BMP: 06/09/18 06:17 06/09/18 06:16 Labs: Abnormal lab results WBC 13.4 K/mcL (4.3-11.1) H 06/09/18 06:17 RBC 3.21 M/mcL (3.82-4.97) L 06/09/18 06:17 Hgb 9.0 g/dL (11.5-15.4) L 06/09/18 06:17 Hct 28.2 % (35.3-44.9) L 06/09/18 06:17 RDW 16.0 % (11.5-14.5) H 06/09/18 06:17 Neutrophils # 12.2 K/mcL (1.6-8.9) H 06/09/18 06:17 PT 19.6 Seconds (9.4-12.1) H 06/08/18 21:30 APTT 38.3 Seconds (26.0-36.0) H 06/08/18 21:30 Carbon Dioxide 31 mEq/L (23-29) H 06/09/18 06:16 Creatinine 0.56 mg/dL (0.60-1.20) L 06/09/18 06:16 Glucose 192 mg/dL (70-105) H 06/09/18 06:16 POC Glucose 162 mg/dL (70-99) H 06/08/18 22:53 Hemoglobin A1c 6.0 % (-5.6) H 06/08/18 21:30 Calcium 7.9 mg/dL (8.6-10.3) L 06/09/18 06:16 Total Bilirubin 1.1 mg/dL (0.3-1.0) H 06/08/18 21:30 Serum Total Protein 6.3 g/dL (6.4-8.9) L 06/08/18 21:30 - VTE Documentation of Mechanical Device: Venous foot pump, device Consult Discharge Plan - Plan Referrals: Ernesto Kearney DO [Primary Care Provider] -
--- NOTE | 2018-06-09 15:00 | Neurology - Consult Note ---
Date of Encounter: 06/09/18 Time of Encounter: 14:50 Assessment and Plan (1) Cerebral infarction, left hemisphere Current Visit: Yes Status: Acute It is obvious that this patient has suffered acute left hemispheric dysfunction , likely the result of a cerebral infarction. Due to the fact that she does have decreased level of consciousness and my suspicion that this is a large branch of the left middle cerebral artery territory. Perhaps due to embolus. At this time stroke protocol orders are in play. I am going to obtain a CT scan of her head today to assess for edema. The next 24-48 hours are crucial in terms of naming might expect maximal amounts of edema to ensue. If this does occur then I would anticipate starting mannitol. Permissive hypertension is generally the visual and I would not treat hypertension acutely over the next 24-48 hours and less the systolic blood pressures greater than 220. She will get an aspirin daily 81 mg. We will follow. Critical Care time spent with this patient today was 60 minutes which includes chart review, patient assessment, case discussion with ICU personnel counseling and coordinating care. History of Present Illness HPI: The chart was reviewed, the patient was seen and examined independently. Case was discussed with ICU personnel. Ms. Leach is a 72 year old female who was admitted to [facility] on 06/08/2018 to undergo left knee arthroplasty. Apparently she fell at home while trying to arise from the toilet. She is a very large woman. As a result of the fall she fractured her left femur. Orthopedics deemed that without surgery she would remain nonambulatory. Ultimately cardiology was consulted and fresh frozen plasma was given in order to prepare her for surgery. She does have a pre-existing history of atrial fibrillation and was on anticoagulation with a therapeutic INR at the time of admission. Apparently in the recovery room she was slow to arouse. Ultimately was determined that the patient did have a right facial droop and a left gaze preference. She also had some weakness of the right upper and right lower extremity. I spoke with the personnel in the recovery room at the time of this event and instructed him to call a stroke alert. He was then taken to the ED and further assessments were performed. She was placed on the [facility] stroke telemetry monitoring unit and assessed by the stroke machine carton marker nurse consultant at [facility]. Stat CT of the brain and neck were both negative for any acute occlusions. However CT scan of the head revealed abnormalities and then she also had profuse bleeding from her surgical training therefore she was deemed not to be a good candidate for IV TPA. I did recommend giving her aspirin acutely and placing her on stroke protocol orders. She was transferred to the ICU for intense monitoring. Currently the family is at bedside. I did have a protracted conversation with them about my expectations. Past Med Surg Social Fam HX - Past Medical History Medical history: atrial fibrillation, diabetes, hyperlipidemia, hypertension, thyroid disease - Past Surgical History Surgical History: pacemaker/AICD Additional surgical history: two bladder surgeries, Bilateral knee replacements , hysterectomy - Social History Smoking Status: Never smoker Smokeless Tobacco Status: No Alcohol use: none Drug use: none - Family History Father Hx Family Cardiac Disorders: Yes Medications and Allergies ARIPiprazole [Abilify] 5 mg PO DAILY 06/07/18 [History] Buspirone HCl [Buspar] 30 mg PO BID 06/07/18 [History] Dorzolamide [Trusopt] 1 drop BOTH EYES BID 06/07/18 [History] Famotidine [Heartburn Prevention] 20 mg PO BID 06/07/18 [History] Glimepiride [Amaryl] 2 mg PO DAILY 06/07/18 [History] Levothyroxine [Synthroid] 175 mcg PO DAILY 06/07/18 [History] Montelukast [Singulair] 10 mg PO DAILY 06/07/18 [History] Omeprazole [PriLOSEC] 40 mg PO DAILY 06/07/18 [History] Pravastatin Sodium [Pravachol] 20 mg PO DAILY 06/07/18 [History] Warfarin [Coumadin] 2 mg PO SUSA 06/08/18 [History] Warfarin [Coumadin] 4 mg PO MOTUWETHFR 06/08/18 [History] 3 Allergy/AdvReac Type Severity Reaction Status Date / Time ciprofloxacin Allergy Palpitation Verified 06/07/18 17:00 s codeine Allergy Difficulty Verified 06/07/18 17:00 Swallowing levofloxacin [From Levaquin] Allergy Hives Verified 06/07/18 17:00 Sulfa (Sulfonamide Allergy Weakness Verified 06/07/18 17:00 Antibiotics) nitrofurantoin AdvReac Nausea Verified 06/07/18 17:00 [From Macrobid] ROS unobtainable: due to mental status All Systems: The remainder of the systems were reviewed and are negative Physical Examination - Vital Signs Vital Signs: Initial Vital Signs Temp Pulse Resp BP Pulse Ox 98.2 F 81 16 114/65 94 06/07/18 16:16 06/07/18 16:16 06/07/18 16:16 06/07/18 16:16 06/07/18 16:16 - Neurologic Sensorimotor examination: hemiparesis (Dense right hemiparesis is present), hemineglect (Right justin-neglect is present) Detailed motor examination: other (She does wiggle the toes on the left foot and she has full movement of the left upper extremity. No involuntary movements are identified. She is developing spastic tone of the right upper extremity.) Detailed sensory examination: other (Difficult to assess in the patient that is obtunded.) Mental Status Examination: Mental status exam finds that she is not conscious upon my entering the room, she does attempt to open her eyes to voice. She ultimately does open her eyes and does have a left gaze preference with right hemianopsia. She does follow my commands when I ask her to wiggle her toes a she does wiggle the toes on the left foot. She reflexively squeezes with her left hand upon my touching her palm. She is nonverbal. She does not make eye contact. Cranial nerve examination: PERRL Cranial Nerve Exam: facial droop: Right, flattening of masolabic/folds: Right Results - Laboratory Findings CBC and BMP: 06/09/18 06:17 06/09/18 06:16 Abnormal lab findings: Abnormal lab results WBC 13.4 K/mcL (4.3-11.1) H 06/09/18 06:17 RBC 3.21 M/mcL (3.82-4.97) L 06/09/18 06:17 Hgb 9.0 g/dL (11.5-15.4) L 06/09/18 06:17 Hct 28.2 % (35.3-44.9) L 06/09/18 06:17 RDW 16.0 % (11.5-14.5) H 06/09/18 06:17 Neutrophils # 12.2 K/mcL (1.6-8.9) H 06/09/18 06:17 PT 19.6 Seconds (9.4-12.1) H 06/08/18 21:30 APTT 38.3 Seconds (26.0-36.0) H 06/08/18 21:30 Carbon Dioxide 31 mEq/L (23-29) H 06/09/18 06:16 Creatinine 0.56 mg/dL (0.60-1.20) L 06/09/18 06:16 Glucose 192 mg/dL (70-105) H 06/09/18 06:16 POC Glucose 162 mg/dL (70-99) H 06/08/18 22:53 Hemoglobin A1c 6.0 % (-5.6) H 06/08/18 21:30 Calcium 7.9 mg/dL (8.6-10.3) L 06/09/18 06:16 Total Bilirubin 1.1 mg/dL (0.3-1.0) H 06/08/18 21:30 Serum Total Protein 6.3 g/dL (6.4-8.9) L 06/08/18 21:30 Consult Discharge Plan - Plan Referrals: Ernesto Kearney DO [Primary Care Provider] -
[2018-06-09] MEDS ORDERED: Mannitol 25% vial 12.5 GM/50 ML VIAL IVP ONE (17:44)
[2018-06-09] MEDS ORDERED: *HR* Warfarin 2 MG TABLET PO SCH ×2 (18:00)
[2018-06-09] MEDS ORDERED: MANNITOL IVC SCH (18:15)
--- NOTE | 2018-06-09 18:22 | Internal Med Progress Note ---
Hospitalist Progress Note - Encounter Date of Encounter: 06/09/18 Time of Encounter: 11:00 - Subjective Interval History: Patient postop day 1 of Revision total knee replacement to distal femoral replacement, partial patellectomy Patient had a left cerebral vascular infarct overnight and now unable to respond to questions and unable to move right or lower extremities; neurology consulted - Exam Vitals: Temp Pulse Resp BP Pulse Ox 99.5 F 80 23 136/73 94 06/09/18 16:04 06/09/18 17:00 06/09/18 17:00 06/09/18 17:00 06/09/18 17:00 Exam: Gen.: Patient does not respond to questions but does respond to painful stimuli ENT: Mucosal membranes moist Cardiovascular: Normal S1 and S2 regular rate rhythm no murmurs rubs or gallops Abdomen: Soft, nontender and nondistended with positive bowel sounds Extremities: No lower extremity edema Skin: Normal color Neurology: Patient with right sided facial droop and not able to move right upper extremity or lower extremity - Assessment and Plan (1) Cerebral infarction, left hemisphere Current Visit: Yes Status: Acute Assessment and Plan: Patient has what appears to be left-sided cerebral infarct not able to move her upper or lower extremities with right facial droop. Neurology consulted and appreciate recommendations. (2) Left femoral shaft fracture Current Visit: Yes Status: Acute Assessment and Plan: Postop day 1 for revision of total knee replacement to distal femur replacement with partial patellectomy Orthopedics following and appreciate any further recommendations. (3) Atrial fibrillation Current Visit: Yes Status: Chronic Assessment and Plan: Patient reports a history of atrial fibrillation and as a result pacemaker placement Patient currently on Coumadin for anticoagulation. (4) HTN (hypertension) Current Visit: Yes Status: Acute Assessment and Plan: Will allow for permissive hypertension due to new onset of CVA as above (5) HLD (hyperlipidemia) Current Visit: Yes Status: Acute Assessment and Plan: Continue home medications (6) Hypothyroid Current Visit: Yes Status: Acute Assessment and Plan: Continue home medications (7) Diabetes Current Visit: Yes Status: Acute Assessment and Plan: Coverage with sliding-scale insulin (8) DVT prophylaxis Current Visit: Yes Status: Acute Assessment and Plan: Continue Coumadin - Time Spent with Patient Total time spent is greater than 50% in coordination of care (as documented) at patient's floor/unit and/or counseling patient: Internal Medicine: Result - Labs CBC & Chem 7: 06/09/18 06:17 06/09/18 06:16 Labs: Short CBC 06/08/18 06/08/18 06/09/18 Range/Units 20:07 21:30 06:17 WBC 16.6 H D 14.1 H 13.4 H (4.3-11.1) K/mcL Hgb 10.4 L D 9.5 L 9.0 L (11.5-15.4) g/dL Hct 34.0 L 31.1 L 28.2 L (35.3-44.9) % Plt Count 207 193 178 (140-400) K/mcL Neutrophils # 14.3 H 13.1 H 12.2 H (1.6-8.9) K/mcL BMP 06/08/18 06/08/18 06/09/18 20:07 21:30 06:16 Sodium 136 135 L 138 Potassium 4.3 4.3 4.1 Chloride 100 103 101 Carbon Dioxide 26 29 31 H BUN 11 11 11 Creatinine 0.66 0.66 0.56 L Glucose 137 H 171 H 192 H Calcium 8.5 L 8.2 L 7.9 L Cardiac Enzymes 06/08/18 Range/Units 20:07 Troponin I < 0.03 (< 0.04) ng/mL Liver Function 06/08/18 Range/Units 21:30 Total Bilirubin 1.1 H (0.3-1.0) mg/dL Direct Bilirubin 0.2 (0.0-0.2) mg/dL AST 20 (13-39) Units/L ALT 11 (7-52) Units/L Alkaline Phosphatase 85 (34-104) Units/L Albumin 3.6 (3.5-5.7) g/dL - ABG Interpretation ABG results: PT/INR, D-dimer PT 19.6 Seconds (9.4-12.1) H 06/08/18 21:30 - Impressions Impressions Knee X-Ray 06/08/18 17:39 IMPRESSION: Expected postoperative changes in the knee soft tissues with surgical drain in place and overlying skin benjamín. Total left knee arthroplasty hardware is intact. Alignment is anatomic. D/ / 06/08/2018 21:58:12 Elmo Kay MD / ct Interpreting Provider: Elmo Kay MD Head CT 06/08/18 20:46 IMPRESSION: Possible acute infarct in the left basal ganglia and internal capsule. Motion degraded exam. No large hemorrhage. D/ : / 06/08/2018 21:25:57 Lincoln Harris MD / ct Interpreting Provider: Lincoln Harris MD Head CTA 06/08/18 21:40 IMPRESSION: CTA of the head and neck without acute arterial abnormality. Left basal ganglia margin remains indistinct. Consider correlation with MRI to better evaluate for possible acute ischemia. Bilateral vertebral artery, V4 segments atheromatous plaques with right moderate grade focal stenosis and left low-grade focal stenosis. Severe cervical spondylosis. The findings were sent to the Radiology Results Communication Center at 11:45 pm on 06/08/2018to be communicated to a licensed caregiver. D/ / 06/09/2018 06:59:14 Francois temple Interpreting Provider: Francois Clifton Neck CTA 06/08/18 21:40 IMPRESSION: CTA of the head and neck without acute arterial abnormality. Left basal ganglia margin remains indistinct. Consider correlation with MRI to better evaluate for possible acute ischemia. Bilateral vertebral artery, V4 segments atheromatous plaques with right moderate grade focal stenosis and left low-grade focal stenosis. Severe cervical spondylosis. The findings were sent to the Radiology Results Communication Center at 11:45 pm on 06/08/2018to be communicated to a licensed caregiver. D/ / 06/09/2018 06:59:14 Francois temple Interpreting Provider: Francois Clifton Chest X-Ray 06/09/18 00:07 IMPRESSION: Chest: Pulmonary edema is suspected without focal airspace disease. Abdomen: The tip of the enteric tube is probably in the duodenum. D/ / Eris Dove MD / Eris Dove MD Interpreting Provider: Eris Dove MD X-Ray 06/09/18 01:14 IMPRESSION: Chest: Pulmonary edema is suspected without focal airspace disease. Abdomen: The tip of the enteric tube is probably in the duodenum. D/ / Eris Dove MD / Eris Dove MD Interpreting Provider: Eris Dove MD Head CT 06/09/18 15:10 IMPRESSION: Interval progression of the nonhemorrhagic left basal ganglia infarct with some localized mass effect and slight shift of the septum pellucidum to the right by approximately 3-4 mm. D/ 06/09/2018 17:05:44 Herbert Ramírez MD / windy Interpreting Provider: Herbert Ramírez MD - VTE Documentation of Mechanical Device: Venous foot pump, device Consult Discharge Plan - Plan Referrals: Ernesto Kearney DO [Primary Care Provider] - (2) Left femoral shaft fracture Qualifiers: Encounter type: initial encounter Qualified Code(s): S72.302A - Unspecified fracture of shaft of left femur, initial encounter for closed fracture (3) Atrial fibrillation Qualifiers: Atrial fibrillation type: paroxysmal Qualified Code(s): I48.0 - Paroxysmal atrial fibrillation (4) HTN (hypertension) Qualifiers: Hypertension type: essential hypertension Qualified Code(s): I10 - Essential (primary) hypertension (5) HLD (hyperlipidemia) Qualifiers: Hyperlipidemia type: unspecified Qualified Code(s): E78.5 - Hyperlipidemia, unspecified (6) Hypothyroid Qualifiers: Hypothyroidism type: unspecified Qualified Code(s): E03.9 - Hypothyroidism, unspecified (7) Diabetes Qualifiers: Chronic kidney disease stage: unspecified stage Qualified Code(s): E08.22 - Diabetes mellitus due to underlying condition with diabetic chronic kidney disease; 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
[2018-06-09] MEDS ORDERED: Insulin LISPRO 300 UNITS/3 ML VIAL SQ SCH (21:00)
[2018-06-09] MEDS: Docusate Oral Soln 100 MG/10 ML UDC GTUBE SCH (21:17)
[2018-06-09] MEDS: Aspirin 325 MG TABLET PO SCH (21:17)
[2018-06-10 04:46] LABS: Basophils % 0.2 %; Eosinophils % 0.1 %; Hematocrit 25.4 % (35.3-44.9); Hemoglobin 7.9 g/dL (11.5-15.4); Immature Granulocytes % 0.3 % (0-4); Immature Platelets 6.2 % (1.1-6.1); Lymphocytes % 8.3 %; Mean Corpuscular HGB Conc 31.1 g/dL (31.6-35.5); Mean Corpuscular Hemoglobin 27.5 pg (28.0-33.3); Mean Corpuscular Volume 88.5 fL (83.0-100.0); Mean Platelet Volume 10.8 fL (9.4-12.4); Monocytes # 0.8 K/mcL (0.0-1.3); Monocytes % 6.4 %; Neutrophils # 10.2 K/mcL (1.6-8.9); Platelet Count 201 K/mcL (140-400); Red Blood Count 2.87 M/mcL (3.82-4.97); Red Cell Distribution Width 16.4 % (11.5-14.5); Segmented Neutrophils % 84.7 %
[2018-06-10 05:05] LABS: BUN/Creatinine Ratio 19 (6-26); Blood Urea Nitrogen 11 mg/dL (8-23); Calcium 8.1 mg/dL (8.6-10.3); Carbon Dioxide 34 mEq/L (23-29); Chloride 100 mEq/L (98-107); Glucose 147 mg/dL (70-105); Osmolality,Calculated 286 (280-300); Sodium 137 mEq/L (136-145); eGFR For Non-African Americans > 60 (> 60)
[2018-06-10] MEDS: 0.9 % Sodium Chloride 250 ML IVC SCH (06:22)
[2018-06-10] MEDS: ARIPiprazole 5 MG TABLET PO SCH (08:56)
[2018-06-10] MEDS: Aspirin 325 MG TABLET PO SCH (08:56)
[2018-06-10] MEDS: Docusate Oral Soln 100 MG/10 ML UDC GTUBE SCH (08:56)
[2018-06-10] MEDS: Famotidine 20 MG TABLET PO SCH (08:56)
[2018-06-10] MEDS: Dorzolamide OPTH 10 ML BOTTLE BOTH EYES SCH (08:57)
[2018-06-10] MEDS: Lacri-Lube 3.5 GM TUBE BOTH EYES SCH (08:57)
[2018-06-10] MEDS: Insulin LISPRO 300 UNITS/3 ML VIAL SQ SCH ×2 (08:57→13:52)
[2018-06-10] MEDS ORDERED: Mannitol 25% vial 12.5 GM/50 ML VIAL IVP ONE (09:20)
[2018-06-10] MEDS ORDERED: MANNITOL IVPB ONE (09:30)
--- NOTE | 2018-06-10 09:54 | Internal Med Progress Note ---
Hospitalist Progress Note - Encounter Date of Encounter: 06/10/18 - Subjective Interval History: Patient postop day 2 of Revision total knee replacement to distal femoral replacement, partial patellectomy Patient found to have right-sided weakness secondary to a CVA with a left basal ganglia infarct noted on CT of the head. Patient with fever overnight MAXIMUM TEMPERATURE of 100.2 white blood cell count of 13.4 - Exam Vitals: Temp Pulse Resp BP Pulse Ox 98.6 F 80 20 130/53 100 06/10/18 07:00 06/10/18 09:00 06/10/18 09:00 06/10/18 09:00 06/10/18 09:00 - Assessment and Plan (1) Cerebral infarction, left hemisphere Current Visit: Yes Status: Acute Assessment and Plan: Patient found to have right sided weakness and CT of the head showed left basal ganglia infarct with slightly increased mass effect and midline shift measuring up to 6 mm Neurology following and appreciate recommendations. (2) Left femoral shaft fracture Current Visit: Yes Status: Acute Assessment and Plan: Postop day 2 for revision of total knee replacement to distal femur replacement with partial patellectomy Orthopedics following and appreciate any further recommendations. (3) Atrial fibrillation Current Visit: Yes Status: Chronic Assessment and Plan: Patient with a history of atrial fibrillation and as a result pacemaker placement Patient currently on Coumadin for anticoagulation. (4) HTN (hypertension) Current Visit: Yes Status: Acute Assessment and Plan: Will allow for permissive hypertension due to new onset of CVA as above (5) HLD (hyperlipidemia) Current Visit: Yes Status: Acute Assessment and Plan: Continue home medications (6) Hypothyroid Current Visit: Yes Status: Acute Assessment and Plan: Continue home medications (7) Diabetes Current Visit: Yes Status: Acute Assessment and Plan: Coverage with sliding-scale insulin (8) DVT prophylaxis Current Visit: Yes Status: Acute Assessment and Plan: Continue Coumadin - Time Spent with Patient Total time spent is greater than 50% in coordination of care (as documented) at patient's floor/unit and/or counseling patient: Internal Medicine: Result - Labs CBC & Chem 7: 06/10/18 04:35 06/10/18 04:35 Labs: Short CBC 06/10/18 Range/Units 04:35 WBC 12.0 H (4.3-11.1) K/mcL Hgb 7.9 L (11.5-15.4) g/dL Hct 25.4 L (35.3-44.9) % Plt Count 201 (140-400) K/mcL Neutrophils # 10.2 H (1.6-8.9) K/mcL BMP 06/10/18 04:35 Sodium 137 Potassium 4.0 Chloride 100 Carbon Dioxide 34 H BUN 11 Creatinine 0.57 L Glucose 147 H Calcium 8.1 L - ABG Interpretation ABG results: PT/INR, D-dimer PT 19.6 Seconds (9.4-12.1) H 06/08/18 21:30 - Impressions Impressions Knee X-Ray 06/08/18 17:39 IMPRESSION: Expected postoperative changes in the knee soft tissues with surgical drain in place and overlying skin benjamín. Total left knee arthroplasty hardware is intact. Alignment is anatomic. D/ / 06/08/2018 21:58:12 Elmo Kay MD / ct Interpreting Provider: Elmo Kay MD Head CT 06/08/18 20:46 IMPRESSION: Possible acute infarct in the left basal ganglia and internal capsule. Motion degraded exam. No large hemorrhage. D/ /08/2018 21:25:57 Lincoln Harris MD / ct Interpreting Provider: Lincoln Harris MD Head CTA 06/08/18 21:40 IMPRESSION: CTA of the head and neck without acute arterial abnormality. Left basal ganglia margin remains indistinct. Consider correlation with MRI to better evaluate for possible acute ischemia. Bilateral vertebral artery, V4 segments atheromatous plaques with right moderate grade focal stenosis and left low-grade focal stenosis. Severe cervical spondylosis. The findings were sent to the Radiology Results Communication Center at 11:45 pm on 06/08/2018to be communicated to a licensed caregiver. D/ / 06/09/2018 06:59:14 Francois Clifton / windy Interpreting Provider: Francois Clifton Neck CTA 06/08/18 21:40 IMPRESSION: CTA of the head and neck without acute arterial abnormality. Left basal ganglia margin remains indistinct. Consider correlation with MRI to better evaluate for possible acute ischemia. Bilateral vertebral artery, V4 segments atheromatous plaques with right moderate grade focal stenosis and left low-grade focal stenosis. Severe cervical spondylosis. The findings were sent to the Radiology Results Communication Center at 11:45 pm on 06/08/2018to be communicated to a licensed caregiver. D/ / 06/09/2018 06:59:14 Francois Clifton / windy Interpreting Provider: Francois Clifton Head CT 06/09/18 15:10 IMPRESSION: Interval progression of the nonhemorrhagic left basal ganglia infarct with some localized mass effect and slight shift of the septum pellucidum to the right by approximately 3-4 mm. D/ / 06/09/2018 17:05:44 Herbert Ramírez MD / windy Interpreting Provider: Herbert Ramírez MD X-Ray 06/10/18 00:27 IMPRESSION: The tip of the enteric tube is in the stomach though the proximal side hole location is indeterminate. D/ / Eris Dove MD / Eris Dove MD Interpreting Provider: Eris Dove MD Head CT 06/10/18 08:00 IMPRESSION: Interval evolution of the left basal ganglia infarct with slightly increased mass effect and midline shift now measuring up to 6 mm. No evidence of hemorrhage. The findings were sent to the Radiology Results Communication Center at 8:59 am on 06/10/2018to be communicated to a licensed caregiver. D/ / Adrien Henderson MD / Adrien Henderson MD Interpreting Provider: Adrien Henderson MD - VTE Documentation of Mechanical Device: Venous foot pump, device Consult Discharge Plan - Plan Referrals: Ernesto Kearney DO [Primary Care Provider] - (2) Left femoral shaft fracture Qualifiers: Encounter type: initial encounter Qualified Code(s): S72.302A - Unspecified fracture of shaft of left femur, initial encounter for closed fracture (3) Atrial fibrillation Qualifiers: Atrial fibrillation type: paroxysmal Qualified Code(s): I48.0 - Paroxysmal atrial fibrillation (4) HTN (hypertension) Qualifiers: Hypertension type: essential hypertension Qualified Code(s): I10 - Essential (primary) hypertension (5) HLD (hyperlipidemia) Qualifiers: Hyperlipidemia type: unspecified Qualified Code(s): E78.5 - Hyperlipidemia, unspecified (6) Hypothyroid Qualifiers: Hypothyroidism type: unspecified Qualified Code(s): E03.9 - Hypothyroidism, unspecified (7) Diabetes Qualifiers: Chronic kidney disease stage: unspecified stage Qualified Code(s): E08.22 - Diabetes mellitus due to underlying condition with diabetic chronic kidney disease; 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
[2018-06-10 15:51] VITALS: BP 128/61
--- NOTE | 2018-06-10 17:23 | Discharge Summary ---
Orders not resulted at time of discharge: Pending orders 06/08/18 07:37 PLASMA [BBK] Stat PRBC [Red Blood Cells] [BBK] Routine Type and Screen [BBK] Stat 06/08/18 18:15 Culture,Anaerobic [RM] Routine Culture,Tissue (Biopsy) [RM] Routine 06/08/18 18:57 Surgical Pathology [PTH] Routine 06/08/18 21:30 Homocysteine Stat 06/08/18 22:00 ECG 12 lead ECG [ECG] Stat Date of Encounter: 06/10/18 Time of Encounter: 11:00 - Discharge Diagnosis (1) Cerebral infarction, left hemisphere Priority: Secondary Status: Acute (2) Left femoral shaft fracture Priority: Primary Status: Acute Qualifiers: Encounter type: initial encounter Qualified Code(s): S72.302A - Unspecified fracture of shaft of left femur, initial encounter for closed fracture (3) Atrial fibrillation Priority: Secondary Status: Chronic Qualifiers: Atrial fibrillation type: paroxysmal Qualified Code(s): I48.0 - Paroxysmal atrial fibrillation (4) HTN (hypertension) Priority: Secondary Status: Acute Qualifiers: Hypertension type: essential hypertension Qualified Code(s): I10 - Essential (primary) hypertension (5) HLD (hyperlipidemia) Priority: Secondary Status: Acute Qualifiers: Hyperlipidemia type: unspecified Qualified Code(s): E78.5 - Hyperlipidemia , unspecified (6) Hypothyroid Priority: Secondary Status: Acute Qualifiers: Hypothyroidism type: unspecified Qualified Code(s): E03.9 - Hypothyroidism , unspecified (7) Diabetes Priority: Secondary Status: Acute Qualifiers: Chronic kidney disease stage: unspecified stage Qualified Code(s): E08.22 - Diabetes mellitus due to underlying condition with diabetic chronic kidney disease; Z79.4 - [facility] (current) use of insulin Hospital course: Patient is an 89-year-old female with past medical history significant for pacemaker, atrial fibrillation on Coumadin for anticoagulation, hypothyroid, hypertension and hyperlipidemia who presents to the [facility] ER on 06/07/18 due to left knee pain. Patient reports that after waking up this morning and going to the shower, she sat down and then when she stood up, she could not feel her legs bilaterally and fell hitting her left knee. Patient reported of immediate sharp left knee pain which she describes as sharp radiating down to her left ankle. Patient was not able to stand up so she pushed her life alert button and EMS was dispatched and brought patient into [facility] ER for further evaluation. At [facility], patient was found to have a left distal femoral meetaphysis fracture involving the interface with the femoral components of the prosthesis of left total knee arthroplasty. Orthopedics (Dr. Gutierrez) was consulted from [facility] and patient was transferred to [facility] for further medical management. Patients INR on admission was 3.3 and PTT 37.4. During patients hospital stay, cardiology was consulted for clearance and then a revision of total knee replacement to distal femoral replacement, partial patellectomy was done on 06/08/18 by orthopedics. In the PACU, it was noted on postop evaluation that patient was unable to move right side with facial droop and neurology stroke protocol was called. Biological Engineer was notified and patient was taken to ER for stroke protocol and [facility] neurologist was contacted with recommendations of no TPA due to given recent blood loss during surgery. CT of the head showed possible acute infarct in the left basal ganglia and internal capsule. CTA of the head and neck showed no acute blockage. Patient was given an aspirin plus statin and was transferred to the ICU for closer monitoring. Neurology was consulted and repeat CT of the head on 06/09/18 showed interval progression of the nonhemorrhagic left basal ganglia infarct with some localized mass effect and slight shift of the septum pellucidum to the right by approximately 3-4 mm. Patient was started on mannitol and allowed for permissive hypertension. Repeat CT on 06/10/18 showed Interval evolution of the left basal ganglia infarct with slightly increased mass effect and midline shift now measuring up to 6 mm. No evidence of hemorrhage. Discussed with neurologist with recommendations to transfer patient to [facility] to their neurosurgery unit for further management and evaluation. Family agreed with the plan and [facility] was contacted and patient will be admitted to the neuro critical care unit under . Patient was life flighted to [facility]. - Time Spent with Patient Total time spent providing and/or coordinating discharge services: Less than 30 minutes - Discharge Medications Home Medications: ARIPiprazole [Abilify] 5 mg PO DAILY 06/07/18 [History] Buspirone HCl [Buspar] 30 mg PO BID 06/07/18 [History] Dorzolamide [Trusopt] 1 drop BOTH EYES BID 06/07/18 [History] Famotidine [Heartburn Prevention] 20 mg PO BID 06/07/18 [History] Glimepiride [Amaryl] 2 mg PO DAILY 06/07/18 [History] Levothyroxine [Synthroid] 175 mcg PO DAILY 06/07/18 [History] Montelukast [Singulair] 10 mg PO DAILY 06/07/18 [History] Omeprazole [PriLOSEC] 40 mg PO DAILY 06/07/18 [History] Pravastatin Sodium [Pravachol] 20 mg PO DAILY 06/07/18 [History] Warfarin [Coumadin] 2 mg PO SUSA 06/08/18 [History] Warfarin [Coumadin] 4 mg PO MOTUWETHFR 06/08/18 [History] Allergies/Adverse Reactions: 3 Allergy/AdvReac Type Severity Reaction Status Date / Time ciprofloxacin Allergy Palpitation Verified 06/07/18 17:00 s codeine Allergy Difficulty Verified 06/07/18 17:00 Swallowing levofloxacin [From Levaquin] Allergy Hives Verified 06/07/18 17:00 Sulfa (Sulfonamide Allergy Weakness Verified 06/07/18 17:00 Antibiotics) nitrofurantoin AdvReac Nausea Verified 06/07/18 17:00 [From Macrobid] Date of admission: 06/07/18 15:41 Primary care physician: Ernesto Kearney DO Consults: 06/07/18 17:52 Consult to Cardiology [CONS] Routine Comment: Consulting Provider: Cardiology Ana Reason for Consult: Cardiac clearance Call Completed: Yes 06/09/18 00:05 Consult to Occupational Therapy [CONS] Routine Comment: Evaluate, develop and implement POC Reason for Consult: post knee surgery Does patient have active BEDREST order?: No Is patient medically & hemodynamically stable?: Yes Consult to Orthopedic Navigator [CONS] [CONS] Routine Consult to Physical Therapy [CONS] Routine Comment: Evaluate, develop and impliment POC Reason for Consult: post knee surgery Does patient have active BEDREST order?: No Is patient medically & hemodynamically stable?: Yes Consult to Yarder [CONS] Routine Reason for SW Consult: post op joint replacement RT Post Op Consult [CONS] Routine - Constitutional Vitals: Temp Pulse Resp BP Pulse Ox 98.9 F 80 26 128/61 100 06/10/18 16:04 06/10/18 15:00 06/10/18 15:00 06/10/18 15:00 06/10/18 15:00 General appearance: Present: A&O X 0 - Cardiovascular Cardiovascular exam: Present: RRR, +S1, +S2. Absent: diastolic murmur, gallop, rubs, systolic murmur - Patient Status Disposition: Transfer Other - Discharge Instructions Follow Up With: Ernesto Kearney DO [Primary Care Provider] - - VTE Documentation of Mechanical Device: Venous foot pump, device
--- NOTE | 2018-06-10 21:59 | Orthopedics Progress Note ---
Date of Encounter: 06/10/18 Time of Encounter: 09:00 Subjective Interval history: Late entry from earlier this AM S: Unresponsive and unable to verbalize complaints O: Vitals stable Left knee dressing is clean, dry, intact Unable to perform neurologic exam Foot well perfused A: Revision left total knee to distal femoral replacement Neurology following due to left basal ganglia infarct P: Resume post op care Supportive care per primary team and neurology. Objective Vital signs: Vital Signs Temp Pulse Resp BP Pulse Ox 06/10/18 16:04 98.9 F 06/10/18 15:00 80 21 128/61 100 06/10/18 14:00 80 21 100 06/10/18 13:00 80 21 131/62 100 06/10/18 12:00 80 20 131/60 100 06/10/18 11:34 99.3 F 06/10/18 11:00 80 21 119/60 100 06/10/18 10:00 80 22 125/49 100 06/10/18 09:00 80 20 130/53 100 06/10/18 08:00 80 19 135/64 100 06/10/18 07:00 98.6 F 80 22 137/72 100 06/10/18 06:00 80 22 142/63 99 06/10/18 05:00 98.1 F 80 18 147/83 98 06/10/18 04:30 80 06/10/18 04:00 80 24 125/60 99 06/10/18 03:00 80 22 138/78 98 06/10/18 02:00 80 20 150/63 99 06/10/18 01:13 80 24 139/69 98 06/10/18 00:00 100.0 F H 80 26 131/59 94 06/09/18 23:00 80 24 91/68 95 06/09/18 22:00 80 95 140/71 97 Intake and Output 06/10/18 06/10/18 06/10/18 07:59 15:59 23:59 Output Total 760 / 760 345 / 345 325 / 325 Balance -760 / -760 -345 / -345 -325 / -325 Output: Catheter 730 / 730 325 / 325 325 / 325 Gastric Drainage 0 / 0 Wound Drainage 30 / 30 20 / 20 0 / 0 Left Thigh 30 / 30 20 / 20 0 / 0 Other: Weight 145.8 kg Blood Glucose* 132 126 125 Patient Weight 06/10/18 23:59 Weight 145.8 kg - Labs CBC & BMP: 06/10/18 04:35 06/10/18 04:35 Labs: Abnormal lab results WBC 12.0 K/mcL (4.3-11.1) H 06/10/18 04:35 RBC 2.87 M/mcL (3.82-4.97) L 06/10/18 04:35 Hgb 7.9 g/dL (11.5-15.4) L 06/10/18 04:35 Hct 25.4 % (35.3-44.9) L 06/10/18 04:35 MCH 27.5 pg (28.0-33.3) L 06/10/18 04:35 MCHC 31.1 g/dL (31.6-35.5) L 06/10/18 04:35 RDW 16.4 % (11.5-14.5) H 06/10/18 04:35 Neutrophils # 10.2 K/mcL (1.6-8.9) H 06/10/18 04:35 Immature Plt Fraction 6.2 % (1.1-6.1) H 06/10/18 04:35 PT 19.6 Seconds (9.4-12.1) H 06/08/18 21:30 APTT 38.3 Seconds (26.0-36.0) H 06/08/18 21:30 Carbon Dioxide 34 mEq/L (23-29) H 06/10/18 04:35 Creatinine 0.57 mg/dL (0.60-1.20) L 06/10/18 04:35 Glucose 147 mg/dL (70-105) H 06/10/18 04:35 POC Glucose 126 mg/dL (70-99) H 06/09/18 20:26 Hemoglobin A1c 6.0 % (-5.6) H 06/08/18 21:30 Calcium 8.1 mg/dL (8.6-10.3) L 06/10/18 04:35 Total Bilirubin 1.1 mg/dL (0.3-1.0) H 06/08/18 21:30 Serum Total Protein 6.3 g/dL (6.4-8.9) L 06/08/18 21:30 - Stroke Contraindication Rehab Services Not Assessed: Refused by Patient / Family - VTE Documentation of Mechanical Device: Venous foot pump, device Consult Discharge Plan - Plan Referrals: Ernesto Kearney DO [Primary Care Provider] -
--- NOTE | 2018-06-11 10:30 | Electrocardiograph Report ---
[address] [place], [place] [address] Test Date: 2018-06-08 Pat Name: Huyen Leach Department: 114 Room: [facility] Gender: F [employer]: JJG : 1945 Requested By: Logan Hines Order Number: [id number] Reading MD: Augustine Abad Measurements Intervals [place] Rate: 80 P: [place]: 0 QRS: -73 QRSD: 155 T: 107 QT: 437 QTc: 472 Interpretive Statements ELECTRONIC VENTRICULAR PACEMAKER Electronically Signed On 06-11-2018 10:28:15 EDT by Augustine Abad
[2018-06-11] MEDS ORDERED: *HR* Warfarin 2 MG TABLET PO SCH (18:00)
== END 2018-06-10 16:20 | disposition other institution (70) | DRG 466 ==
LOC: SUATTDRO 15:41 → 3NENU 15:41 → ICNU 06-08 23:16
PROVIDERS: ADMIT Internal Medicine; ATTEND Hospitalist